=== PATIENT | female | born 1990 | race Caucasian/White ===

== ENCOUNTER 2020-08-30 19:48 | Emergency (ER) | payer OTHER ==
[~2020-08-30] VITALS: Ht 162.6 cm; Wt 128.0 kg
[2020-08-30 20:29] LABS: HEMATOCRIT 42.5 % (37.0-47.0); HEMOGLOBIN 14.3 g/dl (12.0-16.0); IMMATURE GRANULOCYTES 0.3 % (0.0-5.0); MEAN CELL VOLUME 86.9 fL CALC (80.0-100.0); MEAN CORPUSCULAR HGB 29.2 pG CALC (26.0-32.0); MEAN CORPUSCULAR HGB CONC 33.6 g/dL CAL (32.0-36.0); NEUT# 10.48 thou/uL (2.00-7.15); RED BLOOD COUNT 4.89 mill/uL (4.20-5.60); RED CELL DISTRI WIDTH 12.9 % (11.5-15.5)
[2020-08-30 20:46] LABS: ALBUMIN 4.9 g/dL (3.2-5.0); ALKALINE PHOSPHATASE 66 u/l (38-126); AMYLASE 48 u/l (30-110); ANION GAP 15 (6-22 (CALC)); BILIRUBIN, TOTAL 1.2 mg/dL (0.0-1.4); BUN 5 mg/dL (7-17); BUN/CREATININE RATIO 8 (12-20 (CALC)); CARBON DIOXIDE 23 mmol/l (22-30); CHLORIDE 101 mmol/l (95-108); CREATININE 0.6 mg/dL (0.5-1.0); GFR > 60 ML/MIN (>=60 (CALC)); GFR FOR AFR.AMER. > 60 ML/MIN (>=60 (CALC)); LIPASE 90 u/l (23-300); SGOT/AST 34 u/l (14-36); SODIUM 135 mmol/l (137-146); TOTAL PROTEIN 8.1 g/dL (6.3-8.2)
[2020-08-30 21:56] LABS: URINE BILIRUBIN - DIPSTICK NEGATIVE (NEGATIVE); URINE BLOOD DIPSTICK MODERATE (NEGATIVE); URINE COLOR YELLOW; URINE GLUCOSE - DIPSTICK NEGATIVE (NEGATIVE); URINE KETONE NEGATIVE (NEGATIVE); URINE LEUK ESTERASE NEGATIVE (NEGATIVE); URINE NITRITE - DIPSTICK NEGATIVE (Negative); URINE PH 5.5 (4.5-8.0); URINE PROTEIN - DIPSTICK NEGATIVE (NEG-TRACE); URINE SPECIFIC GRAVITY >=1.030; URINE UROBILINOGEN - DIPSTICK 0.2 E.U./dL (0.2)
[2020-08-30 22:02] LABS: URINE RBC 0-2 RBC/hpf (0-5)
[2020-08-30 22:03] LABS: URINE SQUAMOUS EPITHELIAL CELL MANY EPI/hpf (0-FEW)
[2020-08-30] MEDS ORDERED: PERCOCET 5/321 COMBO PO (23:58)
[2020-08-31 00:38] VITALS: BP 127/73
== END 2020-08-31 00:37 | disposition home or self-care (01) ==
LOC: ED 19:48
PROVIDERS: Emergency Medicine
DX: R10.30 Lower abdominal pain, unspecified (principal); K58.9 Irritable bowel syndrome, unspecified
CPT/HCPCS: Q9967

== ENCOUNTER 2021-02-16 15:48 | Emergency (ER) | payer OTHER ==
[~2021-02-16] VITALS: Ht 162.6 cm; Wt 90.9 kg
[~2021-02-16 15:48] MED LIST: PERCOCET 5/321 COMBO PO
[2021-02-16] MEDS ORDERED: ONDANSETRON4 MG PO (18:18)
[2021-02-16 18:20] VITALS: BP 159/97
== END 2021-02-16 18:20 | disposition home or self-care (01) ==
LOC: ED 15:48
DX: U07.1 COVID-19 (principal); F41.9 Anxiety disorder, unspecified

== ENCOUNTER 2021-02-20 13:06 | Emergency (ER) | payer OTHER ==
[~2021-02-20] VITALS: Ht 162.6 cm; Wt 110.0 kg
[~2021-02-20 13:06] MED LIST changes: +ONDANSETRON4 MG PO
[2021-02-20 15:02] LABS: URINE BLOOD DIPSTICK MODERATE (NEGATIVE); URINE CLARITY CLEAR; URINE COLOR YELLOW; URINE GLUCOSE - DIPSTICK NEGATIVE (NEGATIVE); URINE KETONE 40 mg/dL (NEGATIVE); URINE LEUK ESTERASE NEGATIVE (Negative); URINE NITRITE - DIPSTICK NEGATIVE (Negative); URINE PROTEIN - DIPSTICK TRACE mg/dL (NEG-TRACE); URINE SPECIFIC GRAVITY 1.025; URINE UROBILINOGEN - DIPSTICK 0.2 E.U./dL (0.2)
[2021-02-20 15:04] LABS: URINE BILIRUBIN - DIPSTICK SMALL (NEGATIVE)
[2021-02-20 15:05] LABS: URINE SQUAMOUS EPITHELIAL CELL RARE EPI/hpf (0-FEW)
[2021-02-20] MEDS ORDERED: REGLAN10 MG PO (16:12)
[2021-02-20] MEDS ORDERED: ZOFRAN4 MG/TAB PO (16:12)
[2021-02-20 16:40] VITALS: BP 118/69
== END 2021-02-20 16:40 | disposition home or self-care (01) ==
LOC: ED 13:06
DX: U07.1 COVID-19 (principal); F41.9 Anxiety disorder, unspecified

== ENCOUNTER 2021-02-23 15:53 | Inpatient (IN) | payer OTHER ==
[~2021-02-23] VITALS: Ht 162.6 cm; Wt 110.0 kg
[~2021-02-23 15:53] MED LIST changes: +REGLAN10 MG PO; +ZOFRAN4 MG/TAB PO
--- NOTE | 2021-02-23 15:55 | NUR ---
TO ROOM FOR TRIAGE
--- NOTE | 2021-02-23 17:00 | NUR ---
UP TO BEDSIDE COMMODE WITH ASSISTANCE
[2021-02-23 17:41] LABS: HEMATOCRIT 45.4 % (37.0-47.0); HEMOGLOBIN 15.4 g/dl (12.0-16.0); IMMATURE GRANULOCYTES 0.4 % (0.0-5.0); MEAN CELL VOLUME 85.7 fL CALC (80.0-100.0); MEAN CORPUSCULAR HGB 29.1 pG CALC (26.0-32.0); MEAN CORPUSCULAR HGB CONC 33.9 g/dL CAL (32.0-36.0); NEUT# 4.87 thou/uL (2.00-7.15); RED BLOOD COUNT 5.3 mill/uL (4.20-5.60); RED CELL DISTRI WIDTH 13.5 % (11.5-15.5)
[2021-02-23 17:41] LABS: URINE BLOOD DIPSTICK LARGE (NEGATIVE); URINE GLUCOSE - DIPSTICK NEGATIVE (NEGATIVE); URINE KETONE 40 mg/dL (NEGATIVE); URINE LEUK ESTERASE NEGATIVE (NEGATIVE); URINE PH 6.5 (4.5-8.0); URINE PROTEIN - DIPSTICK >=300 mg/dL (NEG-TRACE); URINE SPECIFIC GRAVITY >=1.030
[2021-02-23 17:42] LABS: URINE COLOR AMBER; URINE NITRITE - DIPSTICK POSITIVE (Negative)
[2021-02-23 17:44] LABS: URINE BILIRUBIN - DIPSTICK SMALL (NEGATIVE)
[2021-02-23 17:46] LABS: ALBUMIN 4.7 g/dL (3.2-5.0); ALKALINE PHOSPHATASE 56 u/l (38-126); ANION GAP 15 (6-22 (CALC)); BILIRUBIN, TOTAL 0.9 mg/dL (0.0-1.4); BUN 7 mg/dL (7-17); BUN/CREATININE RATIO 10 (12-20 (CALC)); CARBON DIOXIDE 32 mmol/l (22-30); CHLORIDE 91 mmol/l (95-108); CREATININE 0.7 mg/dL (0.5-1.0); GFR > 60 ML/MIN (>=60 (CALC)); GFR FOR AFR.AMER. > 60 ML/MIN (>=60 (CALC)); POTASSIUM 3.4 mmol/l (3.5-5.1); SGOT/AST 177 u/l (14-36); SODIUM 135 mmol/l (137-146); TOTAL PROTEIN 8.5 g/dL (6.3-8.2)
[2021-02-23 17:48] LABS: URINE BACTERIA RARE hpf; URINE SQUAMOUS EPITHELIAL CELL MODERATE EPI/hpf (0-FEW)
--- NOTE | 2021-02-23 18:11 | NUR ---
RT AT BEDSIDE TO DO ABG
[2021-02-23 18:42] VITALS: BP 129/73
--- NOTE | 2021-02-23 18:48 | NUR ---
PATIENT INCONTINENT WHILE IN CT, PERICARE DONE AND ATTENDS PLACED FOR COMFORT.
[2021-02-23 19:10] VITALS: BP 128/58
--- NOTE | 2021-02-23 19:25 | NUR ---
IV RAC INFILTRATED REMOVED AND RESTARTED R HAND.
--- NOTE | 2021-02-23 20:30 | NUR ---
PT UP TO BSC TO VOID PERFORMS OWN PERICARE ASKS FOR AND GIVEN INCONTINENCE BRIEF.
[2021-02-23 21:26] LABS: AMYLASE 85 u/l (30-110); LIPASE 240 u/l (23-300)
[2021-02-23 21:40] VITALS: BP 141/79
--- NOTE | 2021-02-23 21:45 | NUR ---
DR Vidal INFORMED OF VS CHANGES ORDER NOTED
--- NOTE | 2021-02-23 22:38 | NUR ---
PT MEDICATED FOR NAUSEA IMMEDIATELY ASKS FOR CRACKERS PO DISCUSSED N/V POC AT PRESENT.CRACKERS HELD WITH HER AGRTEEMENT W/P/D SKIN LIGHTS DIMMED FOR COMFORT
[2021-02-24 02:18] VITALS: BP 117/58
--- NOTE | 2021-02-24 02:22 | NUR ---
PT ASSISTED UP TO BSC TO VOID LINENS CHANGED ON BED.AFEBRILE NO C/O NAUSEA NOR PAIN.NO CONGESTION NO COUG
--- NOTE | 2021-02-24 03:47 | NUR ---
PT UP WITH ASSIST TO BSC TO VOID THEN MEDICATED FOR MIGRAINE HEADACHE
--- NOTE | 2021-02-24 06:18 | NUR ---
ASLEEP W/P/D SKIN NO COUGH NO CONGESTION NO N/V.
--- NOTE | 2021-02-24 06:43 | NUR ---
AWAKENED FROM PEACEFUL SLEEP NO C/O HINKLE PAIN,NO NAUSEA.A/OX3
[2021-02-24 08:12] LABS: HEMATOCRIT 40.3 % (37.0-47.0); HEMOGLOBIN 13.5 g/dl (12.0-16.0); IMMATURE GRANULOCYTES 0.5 % (0.0-5.0); MEAN CELL VOLUME 88.2 fL CALC (80.0-100.0); MEAN CORPUSCULAR HGB 29.5 pG CALC (26.0-32.0); MEAN CORPUSCULAR HGB CONC 33.5 g/dL CAL (32.0-36.0); NEUT# 3.03 thou/uL (2.00-7.15); RED BLOOD COUNT 4.57 mill/uL (4.20-5.60); RED CELL DISTRI WIDTH 13.7 % (11.5-15.5)
[2021-02-24 10:39] LABS: ALBUMIN 4.1 g/dL (3.2-5.0); ALKALINE PHOSPHATASE 41 u/l (38-126); ANION GAP 14 (6-22 (CALC)); BUN 14 mg/dL (7-17); BUN/CREATININE RATIO 18 (12-20 (CALC)); CARBON DIOXIDE 32 mmol/l (22-30); CHLORIDE 94 mmol/l (95-108); CREATININE 0.8 mg/dL (0.5-1.0); GFR > 60 ML/MIN (>=60 (CALC)); GFR FOR AFR.AMER. > 60 ML/MIN (>=60 (CALC)); POTASSIUM 3.7 mmol/l (3.5-5.1); SGOT/AST 124 u/l (14-36); SODIUM 136 mmol/l (137-146); TOTAL PROTEIN 7.1 g/dL (6.3-8.2)
[2021-02-24 10:54] LABS: BILIRUBIN, TOTAL 0.5 mg/dL (0.0-1.4); C-REACTIVE PROTEIN 14.2 mg/dL (0-0.9)
--- NOTE | 2021-02-24 12:04 | NUR ---
6 minute walk test completed--patient began walk with a sat of 91% on RA--throughout walk around room--3 mins in---sat down to 88% on RA--patient began to cough--sats dropped to 86%--unable to complete remaining 3 mins of test. FIRER BISQUE KILN made aware.
--- NOTE | 2021-02-24 15:38 | NUR ---
PATIENT EXTREMELY NEEDY THIS SHIFT--ALERT, VERBAL, ABLE TO MAKE NEEDS KNOWN--TOLERATES MEDS WELL WHOLE. CONT ONF BOWEL AND BLADDER. OUT OF BED TO BSC INDEPENDENTLY--STEADY GAIT. REQUESTED PRN PAIN MEDS TIMES 1 THIS SHIFT--IV TORADOL GIVEN @ 1515--PENDING RESULTS. D DIMER THIS MORNING OF 1.14--LOVENOX INJECTIONS BEGAN THIS AM WELL. PIV SITE PATENT TO RIGHT HAND--FLUSHES WELL-SITE UNREMARKABLE. ALSO NEW ORDERS FOR NS TO INFUSE @ 80ML/HR--TOLERATING FLUIDS WELL THUS FAR IN SHIFT. CONT TO HAVE LOOSE STOLLS FREQUENTLY. RESTING SOUNDLY AT THIS TIME IN BED WITH EYES CLOSED. WILL CONT TO MONITOR FOR ANY FURTHER CHANGES.
--- NOTE | 2021-02-24 20:31 | NUR ---
PATIENT TRANSPORTED TO [facility]
--- NOTE | 2021-02-24 21:11 | NUR ---
REPORT GIVEN TO OLMAN SALAS
--- NOTE | 2021-02-24 21:12 | NUR ---
[facility] 6231. VSS. NO DISTRESS.
--- NOTE | 2021-02-24 21:16 | NUR ---
Admission Note Report Given to: OLMAN SALAS Transported by: Wheelchair X Stretcher Transported with: X Nurse Transporter X Patent IV X O2 X Long Winder Tender Location: ICU X MS2
--- NOTE | 2021-02-24 21:17 | NUR ---
PT AWAKE, ALERT, ORIENTED X4. ASSISTED WITH BEDPAN. PO FLUIDS PROVIDED REQUESTED. PT VERBALIZES UNDERSTANDING OF BEING TRANSPORTED TO FLOOR FROM ER ROOM. LEAVES DEPARTMENT IN NO DISTRESS.
--- NOTE | 2021-02-24 21:25 | NUR ---
PT RECEIVED FROM ED TO ROOM 289. ARRIVES VIA STRETCHER ACCOMPANIED BY RN. PT TRANSFERED TO THE BED. PT DENIES PAIN AT THIS TIME BUT IS C/O OF NAUSEA. PRN NAUSEA MEDICATION ORDERED. ORIENTED TO UNIT, ROOM, CALL NEGRON, LIGHTS, TV. ICE WATER PROVIDED. CALL NEGRON WITHIN REACH. AGREES TO CALL PRN.
[2021-02-24 21:58] VITALS: BP 147/77
--- NOTE | 2021-02-25 | NUR ---
PT LAYING IN BED WITH EYES CLOSED, APPEARS TO BE SLEEPING, APPEARS COMFORTABLE AND IN NO DISTRESS. RESPIRATIONS REGULAR AND UNLABORED. ITEMS REMAIN WITHIN REACH, CALL NEGRON REMAINS WITHIN REACH. BED REMAINS LOCKED AND IN LOW POSITION WITH BEDRAILS UP X2. WILL CONTINUE TO MONITOR.
[2021-02-25 01:07] VITALS: BP 132/61
--- NOTE | 2021-02-25 04:18 | NUR ---
PT UP WATCHING TV. C/O DISCOMFORT. ICE, EXTRA BLANKET BROUGHT.
[2021-02-25 04:30] VITALS: BP 127/72
[2021-02-25 06:00] LABS: HEMOGLOBIN 12.4 g/dl (12.0-16.0); IMMATURE GRANULOCYTES 0.2 % (0.0-5.0); MEAN CELL VOLUME 87.5 fL CALC (80.0-100.0); MEAN CORPUSCULAR HGB 29.3 pG CALC (26.0-32.0); MEAN CORPUSCULAR HGB CONC 33.5 g/dL CAL (32.0-36.0); NEUT# 3.63 thou/uL (2.00-7.15); RED BLOOD COUNT 4.23 mill/uL (4.20-5.60); RED CELL DISTRI WIDTH 13.7 % (11.5-15.5)
[2021-02-25 06:33] LABS: ALBUMIN 3.6 g/dL (3.2-5.0); ALKALINE PHOSPHATASE 38 u/l (38-126); ANION GAP 12 (6-22 (CALC)); BILIRUBIN, TOTAL 0.5 mg/dL (0.0-1.4); BUN 11 mg/dL (7-17); BUN/CREATININE RATIO 18 (12-20 (CALC)); CARBON DIOXIDE 30 mmol/l (22-30); CHLORIDE 97 mmol/l (95-108); CREATININE 0.6 mg/dL (0.5-1.0); GFR > 60 ML/MIN (>=60 (CALC)); GFR FOR AFR.AMER. > 60 ML/MIN (>=60 (CALC)); POTASSIUM 3.7 mmol/l (3.5-5.1); SGOT/AST 92 u/l (14-36); SODIUM 135 mmol/l (137-146); TOTAL PROTEIN 6.3 g/dL (6.3-8.2)
--- NOTE | 2021-02-25 07:00 | NUR ---
RECIEVED REPORT FROM OLMAN SALAS
[2021-02-25 07:55] VITALS: BP 140/75
--- NOTE | 2021-02-25 07:55 | NUR ---
PT SITTING UP IN CHAIR.PT IS A/O X3. ASSESSMENT AND VITALS COMPLETED. BP 140/75, HR 93, O2 93% ON 4L NC. RESIRATIONS ARE EVEN AND UNLABORED WITH NO DISTRESS NOTED. LUNG SOUNDS ARE DIMINISHED. BOWEL SOUNDS ARE ACTIVE, LBM 02/25 HEART RHYTHM NORMAL WITH TELE IN PLACE. #20G LH INFUSING WITH IVF PER ORDER, SITE REMAINS HEALTHY AND PATENT. SKIN INTACT. PT COMPLAINS OF 5/10 LOWER BACK PAIN AND NAUSEA. PT TO BE MEDICATED PER EMAR. PT EDUCATED ON CHAIR/PRONING. PT VERBALIZED UNDERSTANDING. ALL SAFETY PRECAUTIONS ARE IN PLACE WITH CALL LIGHT IN REACH. AIR/CONTACT PRECAUTIONS ARE IN PLACE WITH CALL LIGHT IN REACH. WILL CONTINUE TO MONITOR.
[2021-02-25 09:10] VITALS: BP 143/76
[2021-02-25 10:50] VITALS: BP 129/72
--- NOTE | 2021-02-25 11:48 | NUR ---
PT RESTING IN SEMI FOWLERS POSITION. RESPIRATIONS ARE EVEN AND UNLBAORED ON 4L NC, 93.%. TELE MONITORING IN PLACE. PT DENIES OF ANY PAINS OR DISCOMFORTS AT THIS TIME. ALL SAFETY PRECAUTIONS ARE IN PLACE WITH CALL LIGHT IN REACH,. WILL CONTINUE TO MONITOR.
--- NOTE | 2021-02-25 12:09 | NUR ---
DR FAY AND ZACK,ANGORGE AT BEDSIDE
--- NOTE | 2021-02-25 14:46 | NUR ---
PT COMPLAINS OF FEELING LIGHT HEADED. VITALS OBATINED. BP 134/74, HR 85, O2 93%. RESPIRATIONS REMAINS EVEN AND UNLABORED. DR FAY INFORMED. WILL CONTINUE TO MONITOR
[2021-02-25 14:47] VITALS: BP 134/74
--- NOTE | 2021-02-25 16:00 | NUR ---
PT RESTING IN SEMI FOWLERS POSITION. RESPIRATIONS ARE EVEN AND UNLABORED ON 4L NC.#20G LH REMAINS INFUSING WITH IVF PER ORDER, SITE REMAINS HEALTHY AND PATENT. TELE MONITORING IN PLACE. PT DENIES OF ANY ADDITIONAL NEEDS AT THIS TIME. ALL SAFETY PRECAUTIONS ARE IN PLACE WITH CALL LIGHT IN REACH. WILL CONTINUE TO MONITOR.
--- NOTE | 2021-02-25 19:07 | NUR ---
FINANCIAL CONTROLLER CALLED TO ROOM STATING SHE IS HAVING TROUBLE BREATHING. UPON ENTERING ROOM PT IS COUGHING AND WET THE BED. O2 86%. O2 INCREASED TO 10L HIGH FLOW NC.PT COMPLAINING OF CHEST PAIN SR 80'S ON TELE. RT CALLED FOR EKG. PT SETTLED. RESPIRATIONS SHALLOW. AID AT BEDSIDE ASSISTING IN CLEANING UP.ALL SAFETY PRECAUTIONS ARE IN PLACE WITH CALL LIGHT IN REACH. [facility]
--- NOTE | 2021-02-25 19:26 | NUR ---
EKG NORMAL SR. DR FAY NOTIFIED.
--- NOTE | 2021-02-25 20:30 | NUR ---
REPORT RECEIVED FROM DAY SHIFT NURSE, ASSUMED CARE. PT CONITNUES TO BE SLIGHTLY SOB, PT ASKED FOR A PURE WIK CATHETER SO SHE DIDNT HAV TO GET UP DURING THE NIGHT. PT ADVISED TO CALL FOR HELP WHEN SHE NEEDS TO URINATE OR DEFICATE. ADVISED PT ON THE IMPORTANCE OF CONTINUING TO MOVE TO INCREASE AIR FLOW AND DECREASE MUSCLE WEAKNESS. PT VERBALIZED UNDERSTANDING. SAFETY PRECAUTIONS IN PLACE, WILL MONITOR
[2021-02-26] VITALS: BP 139/80
[2021-02-26 04:00] VITALS: BP 126/82
--- NOTE | 2021-02-26 04:24 | NUR ---
PT WAS INCONTINENT IN THE BED SINCE LAST CHARTING, BED CHANGE COMPLETE. PT RESTING AT THIS TIME. BREATHING IS DEEPER AND UNLABORED. NO COMPLAINTS VOICED. HAS HAD COMPLAINTS OF NAUSEA THIS SHIFT WHICH WAS TREATED WITH ZOFRAN IV. PT SEEN GOING TO COMMODE INDEPENDENTLY AND WIPING HERSELF. WHEN ASKED PT INDICATES SHE IS UNABLE TO WIPER HERSELF. ASSIGNED VERTICA ARCHITECT HAS BEEN ASSISTING PT WITH CLEANSING HERSELF AND ASSISTING TO COMMODE. PT DID INDICATE THAT SHE WIPES HERSELF FROM THE ANUS TOWARDS HER VAGINA/URETHRA. EDUCATED PT ON WIPING FROM FRONT TO BACK TO DECREASE RISK FOR A UTI, CURRENTLY PT IS + FOR ESBL. SAFETY PRECAUTIONS IN PLACE, WILL MONITOR
[2021-02-26 06:07] LABS: HEMATOCRIT 35.5 % (37.0-47.0); HEMOGLOBIN 11.9 g/dl (12.0-16.0); IMMATURE GRANULOCYTES 0.4 % (0.0-5.0); MEAN CORPUSCULAR HGB 29.8 pG CALC (26.0-32.0); MEAN CORPUSCULAR HGB CONC 33.5 g/dL CAL (32.0-36.0); NEUT# 3.54 thou/uL (2.00-7.15); RED BLOOD COUNT 3.99 mill/uL (4.20-5.60); RED CELL DISTRI WIDTH 13.4 % (11.5-15.5)
[2021-02-26 06:44] LABS: ALBUMIN 3.3 g/dL (3.2-5.0); ALKALINE PHOSPHATASE 37 u/l (38-126); ANION GAP 10 (6-22 (CALC)); BILIRUBIN, TOTAL 0.5 mg/dL (0.0-1.4); BUN 13 mg/dL (7-17); BUN/CREATININE RATIO 22 (12-20 (CALC)); CARBON DIOXIDE 30 mmol/l (22-30); CHLORIDE 101 mmol/l (95-108); CREATININE 0.6 mg/dL (0.5-1.0); GFR > 60 ML/MIN (>=60 (CALC)); GFR FOR AFR.AMER. > 60 ML/MIN (>=60 (CALC)); POTASSIUM 3.5 mmol/l (3.5-5.1); SGOT/AST 93 u/l (14-36); SODIUM 137 mmol/l (137-146); TOTAL PROTEIN 5.9 g/dL (6.3-8.2)
[2021-02-26 07:10] VITALS: BP 125/78
--- NOTE | 2021-02-26 07:10 | NUR ---
PATIENT SITTING UP IN CHAIR AT THIS TIME. PATIENT WAS INCONTINENT OF URINE WHILE IN BED. PATIENT DENEIS ANY PAIN AT THIS TIME. PATIENT IS ON O2 14L HI-FLOW AND SPO2 IS 98%. LUNG JONES ARE DIMINISHED IN ALL JONES SIDERAILS ARE UP CALL LIGHT WITHIN REACH. GRAPPLE OPERATOR DONE SEE INTERVENTIONS AND TELE ON AND BEING MONITORED BY ED.
[2021-02-26 10:40] VITALS: BP 122/75
--- NOTE | 2021-02-26 11:44 | NUR ---
PATIENT LAYING IN BED AT THIS TIME 02 REMAINS ON HI-FLOW AT 14L AND SPO2 IS CURRENTLY 95%. PATIENT ENCOURGAED TO PRONE MUCH POSSIBLE. TELE REMAINS IN PLACE AND BEING MONITORED BY ED. DR. HART AND PATTIE FULLER AT THIS TIME. CALL LIGHT WITHIN REACH SIDERAILS ARE UP X 2
--- NOTE | 2021-02-26 12:18 | NUR ---
1210: INCENTIVE SPIROMETER HEALTH TEACHING DONE AND PT. DEMONSTRATED SAME.
[2021-02-26 14:35] VITALS: BP 131/80
--- NOTE | 2021-02-26 16:17 | NUR ---
PATIENT SITTING UP IN CHAIR AT THIS TIME. NATTYNET DENIES ANY NEEDS CURRENTLY PATIENT REMAINS ON HI-FLOW O2 AT 14L. TELE MONITOR ON AND BEING MONITORED BY ED. CALL LIGHT AND PERSONAL ITEMS WITHIN REACH.
[2021-02-26 19:00] VITALS: BP 117/59
--- NOTE | 2021-02-26 20:10 | NUR ---
REPORT RECIVED FROM OFFGOING NURSE, ASSUMED CARE. PT SITTING UP IN CHAIR, BREATHING IS EVEN AND UNLABORED. CONTINUES TO REMAIN ON O2 @ 14L HIGH FLOW, TOLERATING WELL. IV CONTINUES IN LEFT HAND #20 RUNNING NS @ 20ML. PT ORDERED A PIZZA AND BREADSTICKS FOR HERSELF. N COMPLAINTS VOICED AT THIS TIME. SAFETY PRECAUTIONS ARE IN PLACE, BED IN LOW POSITION, CALL LIGHT WITHIN REACH. WILL MONITOR
[2021-02-27] VITALS: BP 135/78
--- NOTE | 2021-02-27 00:20 | NUR ---
PT RESTING QUIETLY IN BED, HAS BEEN UTILIZING HER INCENTIVE SPHIROMETER THROUGHOUT THE SHIFT. PT HAS BEEN MORE INDEPENDENT IN HER ADL'S, ABLE TO DO MORE FOR HERSELF. SAFETY PRECAUTIONS REMAIN IN PLACE, WILL MONITOR
[2021-02-27 04:00] VITALS: BP 130/69
--- NOTE | 2021-02-27 04:20 | NUR ---
PT RESTED WELL SO FAR THIS SHIFT, NO COMPLAINTS VOICED. BRATHING EVEN AND UNLABORED. NO S/S OF RESP DSITRESS NOTED. VS WNL. SAFETY PRECAUTIONS REMAIN IN PLACE, WILL MONITOR
[2021-02-27 06:21] LABS: HEMATOCRIT 35.6 % (37.0-47.0); HEMOGLOBIN 12.2 g/dl (12.0-16.0); IMMATURE GRANULOCYTES 0.4 % (0.0-5.0); MEAN CELL VOLUME 88.6 fL CALC (80.0-100.0); MEAN CORPUSCULAR HGB 30.3 pG CALC (26.0-32.0); MEAN CORPUSCULAR HGB CONC 34.3 g/dL CAL (32.0-36.0); NEUT# 3.67 thou/uL (2.00-7.15); RED BLOOD COUNT 4.02 mill/uL (4.20-5.60)
[2021-02-27 07:07] LABS: ALBUMIN 3.2 g/dL (3.2-5.0); ALKALINE PHOSPHATASE 41 u/l (38-126); ANION GAP 9 (6-22 (CALC)); BILIRUBIN, TOTAL 0.7 mg/dL (0.0-1.4); BUN 14 mg/dL (7-17); BUN/CREATININE RATIO 27 (12-20 (CALC)); C-REACTIVE PROTEIN 3.6 mg/dL (0-0.9); CARBON DIOXIDE 30 mmol/l (22-30); CHLORIDE 101 mmol/l (95-108); CREATININE 0.5 mg/dL (0.5-1.0); GFR > 60 ML/MIN (>=60 (CALC)); GFR FOR AFR.AMER. > 60 ML/MIN (>=60 (CALC)); POTASSIUM 3.7 mmol/l (3.5-5.1); SGOT/AST 160 u/l (14-36); SODIUM 137 mmol/l (137-146); TOTAL PROTEIN 5.8 g/dL (6.3-8.2)
[2021-02-27 07:21] VITALS: BP 140/81
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
--- NOTE | 2021-02-27 10:08 | NUR ---
PT IN BED. NO DISTRESS NOTED. CALL LIGHT WITHIN REACH.
[2021-02-27 11:25] VITALS: BP 131/78
--- NOTE | 2021-02-27 11:40 | NUR ---
DR. FAY AND Charu SHELL AT BEDSIDE DISCUSSING POC.
--- NOTE | 2021-02-27 11:54 | NUR ---
PT IS UP IN CHAIR. NO DISTRESS NOTED. CALL LIGHT WITHIN REACH.
--- NOTE | 2021-02-27 14:15 | NUR ---
THIS PIANO PLAYER WASHED AND COMBED PTS HAIR. NO DISTRESS NOTED. CALL LIGHT WITHIN REACH.
--- NOTE | 2021-02-27 16:00 | NUR ---
PT IN BED. NO DISTRESS NOTED. CALL LIGHT WITHIN REACH.
--- NOTE | 2021-02-27 17:10 | NUR ---
REDRESSED PT'S IV PER PTS REQUEST. IV PATENT AND HEALTHY. NO DISTRESS NOTED. CALL LIGHT WITHIN REACH.
[2021-02-27 19:27] VITALS: BP 136/81
--- NOTE | 2021-02-27 20:00 | NUR ---
PHYSICAL ASSESMENT COMPLETE. PT CURRENTLY DENIES PAIN OR DISCOMFORT. SCHEDULED MEDICATIONS AND PRN MEDICATION ADMINISTERED, SEE E-MAR. PT DENIES ANY NEEDS AT THIS TIME. PLAN OF CARE REVIEWED, PT DENIES QUESTIONS, VERBALIZES UNDERSTANDING. ITEMS WITHIN REACH, BED LOCKED IN LOW POSITION W/ BEDRAILS UP X2. CALL NEGRON WITHIN REACH, AGREES TO CALL PRN.
[2021-02-27 23:55] VITALS: BP 130/78
--- NOTE | 2021-02-28 03:56 | NUR ---
PT RESTING IN BED, NO SIGNS OF DISTRESS NOTED, RESP EVEN AND UNLABORED. PT VOICES NO NEEDS OR COMPLAINTS AT THIS TIME. CALL LIGHT IN REACH, CONTINUE TO MONITOR.
[2021-02-28 04:00] VITALS: BP 130/70
[2021-02-28 05:58] LABS: HEMOGLOBIN 11.9 g/dl (12.0-16.0); IMMATURE GRANULOCYTES 0.5 % (0.0-5.0); MEAN CELL VOLUME 89.3 fL CALC (80.0-100.0); MEAN CORPUSCULAR HGB 29.5 pG CALC (26.0-32.0); MEAN CORPUSCULAR HGB CONC 33.1 g/dL CAL (32.0-36.0); NEUT# 2.44 thou/uL (2.00-7.15); RED BLOOD COUNT 4.03 mill/uL (4.20-5.60); RED CELL DISTRI WIDTH 12.8 % (11.5-15.5)
[2021-02-28 06:14] LABS: ALBUMIN 3.1 g/dL (3.2-5.0); ALKALINE PHOSPHATASE 41 u/l (38-126); ANION GAP 11 (6-22 (CALC)); BILIRUBIN, TOTAL 0.6 mg/dL (0.0-1.4); BUN 15 mg/dL (7-17); BUN/CREATININE RATIO 28 (12-20 (CALC)); CARBON DIOXIDE 29 mmol/l (22-30); CHLORIDE 103 mmol/l (95-108); CREATININE 0.5 mg/dL (0.5-1.0); GFR > 60 ML/MIN (>=60 (CALC)); GFR FOR AFR.AMER. > 60 ML/MIN (>=60 (CALC)); MAGNESIUM 2.1 mg/dL (1.6-2.3); POTASSIUM 3.6 mmol/l (3.5-5.1); SGOT/AST 72 u/l (14-36); SODIUM 139 mmol/l (137-146); TOTAL PROTEIN 5.8 g/dL (6.3-8.2)
--- NOTE | 2021-02-28 07:21 | NUR ---
PT IS ALERT AND ORIENTED. COVID + ON 4L NC. PT WAS SLEEP UPON ENTERING ROOM. VITALS AND ASSESSMENT COMPLETED. S1 AND S2 HEARD UPON ASCULTATION. BOWELS ACTIVE IN ALL 4 QUADRANTS. SKIN WARM AND DRY. IV INTACT. PEDAL PULSES EQUAL BILATERALLY. PT REFUSES TO GET UP ON HER OWN. HAS ALOT OF EXCUSES. PT WAS TOLD WHAT WAS EXPECTED OF HER. NO DISTRESS NOTED. CALL LIGHT WITHIN REACH.
--- NOTE | 2021-02-28 07:21 | NUR ---
PT IS COVID + ON 14L HIGH FLOW. PT IS ALERT AND ORIENTED. VITALS AND ASSESSMENT COMPLETED. PT WAS IN BED SLEEP UPON ENTERING ROOM. S1 AND S2 HEARD UPON ASCULTATION. BOWELS ACTIVE IN ALL 4 QUADRANTS. SKIN WARM AND DRY. PEDAL PULSES BILATERALLY STRONG. PT IS DOESNT WANT TO DO MUCH ON HER OWN. NO PAIN INDICATED. CALL LIGHT WITHIN REACH.
[2021-02-28 07:22] VITALS: BP 126/74
--- NOTE | 2021-02-28 09:33 | NUR ---
PT DISLODGED IV. NO DISTRESS NOTED. WILL COME BACK IN TO TRY AGAIN.
--- NOTE | 2021-02-28 09:55 | NUR ---
PT HAD A 6 MIN WALK TEST DONE.
[2021-02-28 10:35] VITALS: BP 119/64
--- NOTE | 2021-02-28 10:50 | NUR ---
TRIED ACCESSING ANOTHER IV SITE AND WAS UNSUCCESSFUL. PT COMPLAINING OF PAIN. WILL HAVE ANOTHER NURSE TRY.
--- NOTE | 2021-02-28 12:00 | NUR ---
PT IN BED. AWAITING DISCHARGE. NO DISTRESS NOTED. CALL LIGHT WITHIN REACH.
[2021-02-28] MEDS ORDERED: ZITHROMAX250 MG PO ×2 (12:50→16:33)
[2021-02-28] MEDS ORDERED: DEXAMETHASON6 MG PO ×2 (12:50→16:33)
[2021-02-28] MEDS ORDERED: ASPIRIN 81 LOW81 MG PO ×2 (12:51→16:33)
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
[2021-02-28] MEDS ORDERED: ZOFRAN4 MG/TAB PO (16:33)
--- NOTE | 2021-02-28 17:07 | NUR ---
CALLED SOFTWARE QA MANAGER ON PT SHE WAS TRYING TO LEAVE WITHOUT HER O2 TANK. SHE DECIDED TO STAY BUT SAID SHE MIGHT NOT HAVE A RIDE HOME LATER ON. O2 TANK SHOULD BE COMING AROUND 7PM TODAY.
--- NOTE | 2021-02-28 17:11 | NUR ---
PT WANTING TO LEAVE WITH OUT O2 TANK.
--- NOTE | 2021-02-28 17:59 | NUR ---
PT IS REFUSING TO BE BACK ON TELEMETRY. DR. FAY NOTIFIED.
== END 2021-02-28 19:15 | disposition home or self-care (01) | DRG 177 ==
LOC: ED 15:53 → ED-I 19:02 → ED 19:15 → ED-I 19:16 → MS2 02-24 15:33
PROVIDERS: Emergency Medicine; Nurse Practitioner; ADMIT Hospitalist; ATTEND Hospitalist
PROC: XW033E5 Introduction of Remdesivir Anti-infective into Peripheral Vein, Percutaneous Approach, New Technology Group 5 (ICD-10-PCS; principal; 2021-02-24)
DX: U07.1 COVID-19 (principal); J12.82 Pneumonia due to coronavirus disease 2019; N39.0 Urinary tract infection, site not specified; Z16.12 Extended spectrum beta lactamase (ESBL) resistance; Z68.41 Body mass index [BMI] 40.0-44.9, adult; R09.02 Hypoxemia; F41.9 Anxiety disorder, unspecified; B96.20 Unspecified Escherichia coli [E. coli] as the cause of diseases classified elsewhere; E66.01 Morbid (severe) obesity due to excess calories; R74.01 Elevation of levels of liver transaminase levels; F43.10 Post-traumatic stress disorder, unspecified
CPT/HCPCS: J0131; J1650; Q3014; Q9967